=== PATIENT | male | born 1940 | race Caucasian/White ===

== ENCOUNTER 2017-03-14 14:00 | Inpatient (IN) | payer MEDICARE, OTHER ==
[~2017-03-14] VITALS: Ht 188 cm; Wt 88.0 kg
--- NOTE | 2017-03-14 16:00 | NUR ---
REPORT FROM KRISSY MCCORMACK. PATIENT DIRECT ADMIT FROM DR. HORTON'S OFFICE. 20G IV TO LEFT FA, LABS DRAWN AND ANTIBIOTIC AND IV FLUIDS INFUSING. PATIENT'S WIPEDOWN NOW DONE BY BRENDA MORRIS. PATIENT REPORTS HAVING LEUKEMIA, NOTED WBC 18.2. PATIENT STATES "I WANT TO HAVE MY APPENDIX REMOVED, I HAVE BEEN DEALING WITH THE PAIN FOR TOO LONG". RATES PAIN 3/10 ON PAIN SCALE, AND DENIES NEED FOR PAIN MEDICAITON AT THIS TIME. LUNG SOUNDS CLEAR, EKG DONE AND IN CHART. CONSENT SIGNED AND ON CHART.
--- NOTE | 2017-03-14 16:17 | NUR ---
PT HAS HAD SURGICAL WIPE DOWN AND A NEW GOWN PUT ON. PT REMOVED ALL JEWLERY, UNDER GARMENTS, AND ANY OTHER REMOVABLE ITEMS. PT IS NOW RESTING IN BED WAITING TO BE TAKEN TO SURGERY
--- NOTE | 2017-03-14 17:45 | NUR ---
PT IS CURRENTLY IN SURGERY
--- NOTE | 2017-03-14 17:56 | NUR ---
PATIENT HANDOFF TO OR NURSE, PATIENT FAMILY LEFT TO SURGERY AREA FOR PATIENT. NO COMPLAINTS OF PAIN, SENT PATIENT WITH IV LEVAQUIN STILL INFUSING, INFUSION ALMOST COMPLETE.
--- NOTE | 2017-03-14 18:26 | NUR ---
MAKENZIE CHASE CALLED TO FLOOR TO LET STAFF KNOW PATIENT DOING WELL AND OUT OF SURGERY.
--- NOTE | 2017-03-14 18:36 | NUR ---
03/14/17 183 Mayelin Ramirez report from bakery and deli sales manager.
--- NOTE | 2017-03-14 19:20 | NUR ---
PATIENT TO FLOOR, TRANSFERED OVER TO BED FROM [facility] WITH EASE. PATIENT REQUESTED SALGADO TO BE REMOVED, DR. GOODWIN VERBALIZED OKAY. CONTINUES TO HAVE NO COMPLAINTS OF PAIN. ON FLUID RESTRICTION, 500 ML Q 8HRS. PROVIDED PATIENT WITH 300 ML OF WATER. REPORT TO AMERICA MCCORMACK. ARTURO GETTING VS NOW.
--- NOTE | 2017-03-14 19:23 | EKG ---
[facility] [address] [facility] [place], [place] [address] Signed Normal sinus rhythm Normal ECG No previous ECGs available Confirmed by SUSIE ADORNO MD ([id number]) on 03/14/2017 7:23:39 PM Electronically Signed By: SUSIE ADORNO MD 03/14/171922 PATIENT NAME: ROSEANNE JOHN Electrocardiogram DATE OF : 36 PHYSICIAN: SUSIE ADORNO MD REPORT #: [id number] REPORT IS CONFIDENTIAL AND NOT TO BE RELEASED WITHOUT AUTHORIZATION
--- NOTE | 2017-03-14 20:00 | NUR ---
RECEIVED REPORT AT 1900. FOUND PT IN BED. HE JUST ARRIVED FROM PACU. PT DENIED PAIN AND ANY OTHER COMPLAINTS AT THAT TIME.
--- NOTE | 2017-03-14 22:00 | NUR ---
V/S ARE WDL. BOWEL TONES IN ALL QUADRANTS ARE NOT PRESENT AT THIS TIME. I WILL CHECK AGAIN SOON. ALL LOBES ARE CLEAR, ALL 3 LAP SITES ARE C/D/I, ABD IS NON-DISTENDET ACCORDING TO PT BUT FIRM TO TOUCH. PT IS DUE TO VOID BY 2300. PAIN IS NOT AN ISSUE SO FAR.
--- NOTE | 2017-03-14 22:23 | NUR ---
ROUNDED ON PATIENT. NO COMMENTS OR CONCERNS AT THIS TIME. ALL QUESTIONS ANSWERED AT THIS TIME. CALL LIGHT IN REACH.
--- NOTE | 2017-03-15 00:48 | NUR ---
PT IS SLEEPING AT THIS TIME.
--- NOTE | 2017-03-15 02:19 | NUR ---
V/S ARE WDL, PT STILL DOES NOT HAVE ACTIVE BOWEL TONES. PT IS ALSO NOT PASSING GAS. LAP SITES X3 ARE C/D/I. PT HAS BEEN STANDING UP SEVERAL TIME TO URINATE. URINE OUTPUT IS SUFFICIENT. ALL LOBES ARE CLEAR. I WILL CONTINUE TO MONITOR FOR BOWEL TONES. PT DENIES PAIN AND N/V.
--- NOTE | 2017-03-15 03:56 | NUR ---
PT STATED THAT HE PASSED A LITTLE BIT OF GAS. BOWEL TONES AT THIS TIME ARE HYPOACTIVE. PT AMBULATED IN HALLWAY. PT STILL DENIED PAIN. PT IS BACK IN BED.
--- NOTE | 2017-03-15 05:31 | NUR ---
V/S ARE WDL, AT START OF SHIFT PT HAD NO BOWEL TONES PRESENT. PT HAS TOLERATED WATER WELL. PT HAS DENIED PAIN ALL SHIFT, LAP SITES X3 ON ABD ARE C/D/I. ABD IS NON-DISTENDED BUT FIRM TO TOUCH. PT AMBULATED IN HALLWAY X1, BOWEL TONES AT THIS TIME ARE HYPOACTIVE, PT STATED THAT HE HAS PASSED A LITTLE GAS. PT IS BELCHING FREQUENTLY BUT DOES NOT FEEL ABD PRESSURE OR N/V. URINE OUTPUT IS EXCELLENT.
--- NOTE | 2017-03-15 07:10 | NUR ---
BEDSIDE HANDOFF REPORT RECEIVED FROM CONCERT MANAGER RN. PT RESTING IN BED. IV FLUIDS INFUSING. SCDS INPLACE. PT DENIES NEEDS AT THIS TIME.
--- NOTE | 2017-03-15 07:50 | NUR ---
PT RESTING IN BED. PT DENIES PAIN, PAIN WITH DEEP BREATHING OR MOVEMENT, STATES TOLERABLE, DISCUSSED PAIN MANAGEMENT, PT DENIES NEED FOR PAIN MEDICATION AT THIS TIME. PT LUNG SOUNDS CLEAR, ON ROOM AIR. PT DENIES NAUSEA, BOWEL TONES ACTIVE, TOLERATING CLEAR LIQUID DIET. PT ASSISTED TO BATHROOM, VOIDED WITHOUT DIFFIUCLTY. PT REQUESTING TO WALK IN WORKMAN, DISCUSSED PLAN OF CARE. IV ABX INFUSING. DOG DAY CARE ATTENDANT TO WALK WITH PT IN WORKMAN.
--- NOTE | 2017-03-15 08:39 | NUR ---
NO PROBLEMS WITH IV LINE.
--- NOTE | 2017-03-15 08:59 | NUR ---
AT 0840 PT AND I WALKED 3 LOOPS AROUND MED/SURG FLOOR. HE TOLERATED THE WALKING WELL.PT STATED HE WAS IN NO PAIN AND DIDNT NEED ANYTHING. PT BACK IN BED WITH NURSE CALL LIGHT IN REACH.
--- NOTE | 2017-03-15 10:52 | NUR ---
AT 1040 PT AND I WALKED AROUND MED/SURG FLOOR 2 TIMES. DURING THE END OF THE WALK THE PT GOT A SHARP PAIN IN HIS RIGHT CALF. WE WALKED BACK TO ROOM WHERE I PUT HIS SCD BACK ON AND WRAPPED A WARM BLANKET AROUND HIS RIGHT CALF. HE STATED THAT HE WAS FINE AND MY CLINICAL INSTUCTOR INFORMED HIM ON NOTIFING US IF HE GOT ANY CHEST PAIN. I GOT HIM HIS LAST 100ML OF LIQUID. PT WANTED TO NAP BECUASE HE WAS TIRED. LOWERED THE CURTAINS AND I MADE SURE THE CALL LIGHT WAS IN REACH. PT WAS CONTENT WHEN I LEFT HIM.
--- NOTE | 2017-03-15 11:01 | NUR ---
AT 0945 PT GOT UP TO URINATE. WHILE IN THE BATHROOM HE WASHED HIMSELF WITH A CLOTHWASH AND BRUSHED HIS TEETH. WHILE PT WAS IN BATHROOM I CHANGED ALL BEDDING. PT STATED HE WAS THRISTY ONCE GOT BACK INTO BED. I OFFERED HIM MOUTH SWABS AND CHAPSTICK. PT TOOK CHAPSTICK. PT HAD NO COMPLAINTS AT THIS TIME. NURSE CALL LIGHT WAS IN REACH.
--- NOTE | 2017-03-15 11:16 | NUR ---
PT RESTING IN BED. PT DENIES NEEDS AT THIS TIME. PT DECLINING PAIN MEDICATION, STATES PAIN TOLERABLE. PT PROVIDED WITH 100 ML BROTH, 100 ML OF JUICE AND 100 ML JELLO.
--- NOTE | 2017-03-15 12:21 | OR ---
[facility] [address] [place], [place] [address] Signed DATE OF OPERATION: 03/14/2017 SURGEON: Johnathon Horton MD PREOPERATIVE DIAGNOSIS: Acute appendicitis. POSTOPERATIVE DIAGNOSIS: Acute suppurative appendicitis. PROCEDURE: Laparoscopic appendectomy. ESTIMATED BLOOD LOSS: Minimal. INDICATIONS: Crystal is a 76-year-old gentleman, who has 4-year history of stable chronic lymphocytic leukemia. He has been following along with his oncologist, Dr. Thomas Keene. His baseline white blood cell count runs between 17,000 and 19,000. For the last 2 days, he developed moderately painful persistent right lower quadrant abdominal pain. He went to his emergency room in [facility]. His white count was a little above his baseline of 21,000. He was tender in the right lower quadrant. No fever. CT scan of the abdomen and pelvis showed the appendix, but it did not appear thickened nor whether any inflammatory changes. Consequently, he was allowed to go home. He came back the next day and he was abrading machine tender in the right lower quadrant. His provider had called me and I asked that he put him on Cipro and Flagyl and had him come to my office the next day. In the office, I met with Crystal and his . He continued to have persistent right lower quadrant abdominal pain. He had not eaten all day anticipating surgery. I took the time to call Dr. Keene and we reviewed his records including the recent CT scan. We saw no evidence of any lymphadenopathy around the aorta or the iliac chains. I had reviewed this with Crystal and his in detail. I gave them pamphlet on appendicitis. We discussed laparoscopic versus open appendectomy. We discussed the location and function of the appendix. Fortunately, the appendix has no function in the human body whatsoever. We decided to go ahead and admit him directly to hospital from my office with plan to take his appendix out later at evening. In the meantime, he has been given IV fluids and his antibiotics and subcutaneous heparin. I explained to Crystal and his the nature of the surgery along with its risks including but not limited to bleeding, infection, scarring, change in contour of the skin, damage to bowel, appendiceal stump leak, postoperative intraabdominal abscess, incisional hernias and Electronically Signed By: JOHNATHON HORTON MD 03/15/17 1221 PATIENT NAME: CRYSTAL JOHN OPERATIVE REPORT DATE OF : 36 PHYSICIAN: JOHNATHON HORTON MD REPORT #: [id number] REPORT IS CONFIDENTIAL AND NOT TO BE RELEASED WITHOUT AUTHORIZATION [facility] [address] [place], [place] [address] Signed other unforeseen comorbidities. They had expressed understanding and wished to proceed. PROCEDURE NOTE: I met with Crystal and his , daughter, and son-in-law in our preop area. We then went into operating room and placed Crystal in the supine position under general endotracheal tube anesthesia. He was already on preoperative antibiotics along with subcutaneous heparin. SCDs were utilized. A Motta catheter was then inserted with return of clear yellow urine. He was then prepped and draped in usual sterile fashion. All trocars were placed in their usual positions under visualization of the camera without difficulty. We could see that his bowel was thin, flaccid and fluid filled and it took just a minute to gently sweep the small bowel away from the cecum, the cecum was able to be elevated just a little bit and we easily found the base of the appendix where it joins the anterior taenia coli. Base was a little injected, but as we got out to the middle and distal half of the appendix, it was clearly inflamed, thickened, and was some separation. We then divided the base of the appendix from the cecum with help of cautery and our linear stapler. Hemostasis was excellent on the staple line. We then used 2 vascular loads on the mesoappendix and we divided that with good hemostasis. The appendix was then placed into an EndoCatch bag. We irrigated out the right lower quadrant and suctioned it out until clear. The appendix was then removed and we closed the fascia of the right subcostal trocar site with our laparoscopic suturing device using 0 Vicryl suture. After this, we closed the fascia of the supraumbilical trocar site with interrupted [id number] and simple 0 Vicryl sutures. Local anesthetic was then copiously injected into all 3 trocar sites. Each trocar site was irrigated and suctioned out until clear. The skin and dermis of each trocar site was closed with interrupted 3-0 subcuticular Monocryl sutures. Dry gauze and tape was applied to all 3 incisions. Crystal's Motta catheter was left in place. He was awakened from his anesthesia, extubated in the OR, and taken to recovery room in stable condition. Johnathon Horton MD ALB/MODL /[id number] Electronically Signed By: JOHNATHON HORTON MD 03/15/17 1221 PATIENT NAME: CRYSTAL JOHN OPERATIVE REPORT DATE OF : 36 PHYSICIAN: JOHNATHON HORTON MD REPORT #: [id number] REPORT IS CONFIDENTIAL AND NOT TO BE RELEASED WITHOUT AUTHORIZATION [address] [address] Signed cc: MD Johnathon Delgado MD Eric Gamboa, MD Electronically Signed By: JOHNATHON HORTON MD 03/15/17 1221 PATIENT NAME: CRYSTAL JOHN OPERATIVE REPORT DATE OF : 36 PHYSICIAN: JOHNATHON HORTON MD REPORT #: [id number] REPORT IS CONFIDENTIAL AND NOT TO BE RELEASED WITHOUT AUTHORIZATION
--- NOTE | 2017-03-15 12:30 | NUR ---
PT RESTING IN BED. PT DENIES NEED FOR PAIN MEDICATION. PT LUNG SOUNDS CLEAR, ON ROOM AIR. PT BOWEL TONES ACTIVE, TOLERATING CLEAR LIQUID, ADVANCED TO FULL LIQUID. PT WITH COMPLAINT OF RIGHT CALF PAIN, PAIN WORSE WITH PLANTAR FLEXION/WALKING, MD NOTIFIED, VERBAL ORDER FOR ULTRASOUND FOR DVT.
--- NOTE | 2017-03-15 12:36 | NUR ---
AT 1025 PT WENT TO BATHROOM AND STILL COMPLAINED OF PAIN IN RIGHT CALF WHEN HE GETS UP TO WALK. I GOT RN TO COME IN AND TAKE A LOOK AT HIS LEG. ULTRASOUND WAS ORDERED. PT WAS COMFORTABLE IN BED WHEN LEFT. CALL LIGHT IN REACH.
--- NOTE | 2017-03-15 14:15 | NUR ---
PT RESTING IN BED. PT DENIES NEEDS AT THIS TIME. PT REPORT OF FLATUS.
--- NOTE | 2017-03-15 16:40 | NUR ---
PT TOLERATING FULL LIQUID DIET, ADVANCED TO REGULAR DIET, ASSSISTED WITH ORDERING DINNER. PT DENIES NEED FOR PAIN MEDICATION, CONTINUES TO HAVE RIGHT CALF PAIN WITH AMBULATION. PT LUNG SOUNDS CLEAR. BOWEL TONES ACTIVE. IV FLAGYL INFUSING. PT DENIES OTHER NEEDS AT THIS TIME.
--- NOTE | 2017-03-15 17:28 | NUR ---
PT WAKLING IN WORKAMN WITH NURSE AIDE. IV FLUIDS DECREASED TO 75 ML/HR, FLAGYL INFUSION COMPLETED. PT DENIES OTHER NEEDS AT THIS TIME.
--- NOTE | 2017-03-15 17:52 | NUR ---
PT ON ROOM AIR, O2 SATS 97%, CONTINUOUS PULSE OX, LUNG SOUNDS CLEAR. PT ADVANCED TO REGULAR DIET, TOLERATING WELL, BOWEL TONES ACTIVE. PT WITH COMPLAIT OF RIGHT CALF PAIN, ULTRASOUND FOR DVT NEGATIVE. PT WALKED IN HALLS, SBA. IV FLUIDS D5LR AT 75 ML/HR. PT HAS NOT REQUIRED PAIN MEDICATION. VOIDING QS.
--- NOTE | 2017-03-15 19:10 | NUR ---
RECEIVED REPORT FROM RN. PATIENT IS RESTING COMFORTABLY IN BED, BREATHING IS EVEN AND UNLABORED. DENIES NEEDS AT THIS TIME. CALL LIGHT WITHIN REACH, FAMILY AT BEDSIDE.
--- NOTE | 2017-03-15 20:44 | NUR ---
PATIENT IS RESTING COMFORTABLY IN BED, BREATHING IS EVEN AND UNLABORED. O2 SAT IS 93% ON RA, PULSE IS 98. REPORTS 2/10 PAIN AT INCISION SITES, BUT DENIES PAIN MEDICATION AT THIS TIME. PATIENT HAS NO NEEDS AT THIS TIME, ASSESSMENT DONE. HAD PATIENT IS, WITH A MAXIMUM OF 1250 ML INHALE VOLUME. CALL LIGHT WITHIN REACH.
--- NOTE | 2017-03-15 21:59 | NUR ---
PATIENT IN BED SLEEPING. DOES NOT NEED ANYTHING AT THIS TIME.
--- NOTE | 2017-03-15 22:12 | NUR ---
PATIENT IS RESTING COMFORTABLY IN BED, BREATHING IS EVEN AND UNLABORED ON RA. DENIES NEEDS AT THIS TIME. CALL LIGHT WITHIN REACH.
--- NOTE | 2017-03-15 23:52 | NUR ---
PATIENT ASLEEP, DOES NOT NEED ANYTHING AT THIS TIME.
--- NOTE | 2017-03-16 00:35 | NUR ---
PATIENT ASSISTED TO BATHROOM WITH SBA/NON-SLIP SOCKS. DENIES PAIN AT THIS TIME. O2 SATURATION IS 95% ON RA. DENIES OTHER NEEDS AT THIS TIME. CALL LIGHT WITHIN REACH.
--- NOTE | 2017-03-16 02:06 | NUR ---
PATIENT ASLEEP. DOES NOT NEED ANYTHING AT THIS TIME.
--- NOTE | 2017-03-16 03:48 | NUR ---
PATIENT IS ASLEEP. DOES NOT NEED ANYTHING AT THIS TIME.
--- NOTE | 2017-03-16 03:59 | NUR ---
PATIENT IS RESTING COMFORTABLY IN BED, BREATHING IS EVEN AND UNLABORED. O2 SATURATION IS 95% ON RA, PULSE IS 76. ASSISTED TO BATHROOM WITH SBA/NON-SLIP SOCKS. PATIENT REPORTS 2/10 PAIN AT LAP SITES, BUT CONTINUES TO REFUSE PAIN MEDICATION. NO OTHER NEEDS AT THIS TIME. CALL LIGHT WITHIN REACH.
--- NOTE | 2017-03-16 05:38 | NUR ---
PATIENT'S NIGHT WAS UNEVENTFUL. HE HAS BEEN RESTING COMFORTABLY IN BED THROUGHOUT SHIFT. VSS, NO COMPLAINTS OF PAIN. HAS IV FLUIDS RUNNING, HE IS A SBA. BOWEL TONES ARE ACTIVE, LAP SITES ARE OPEN TO AIR AND APPEAR WNL. NO ACUTE CHANGES FROM BEGINNING OF SHIFT ASSESSMENT.
--- NOTE | 2017-03-16 07:10 | NUR ---
BEDSIDE HANDOFF REPORT RECEIVED FROM MARINE REPORTER RN. PT RESTING IN BED. IV FLUIDS INFUSING D5LR AT 75 ML/HR. PT DENIES NAUSEA. PT VOICING DESIRE TO DISCHARGE TODAY, DISCUSSED PLAN OF CARE.
--- NOTE | 2017-03-16 08:32 | NUR ---
PT SITTING ON EDGE OF BED, EATING BREAKFAST. PT LUNG SOUNDS CLEAR, ON ROOM AIR. PT TOLERATING REGULAR DIET, DENIES NAUSEA, BOWEL TONES ACTIVE. PT RATING PAIN TOLERABLE, DENIES NEED FOR PAIN MEDICATION. NO EDEMA NOTED, CONTINUES TO HAVE RIGHT CALF PAIN, STATES IT IS BETTER THAN YESTERDAY. IV ABX INFUSING. DICUSSED PLAN OF CARE AND DISCHARGE WITH PT. PT DENIES NEEDS AT THIS TIME.
--- NOTE | 2017-03-17 07:25 | DS ---
[facility] [address] [place], [place] [address] Signed ADMISSION DATE: 03/14/2017 DISCHARGE DATE: 03/16/2017 FINAL DIAGNOSIS: Acute suppurative appendicitis. PROCEDURES: Laparoscopic appendectomy. HISTORY OF PRESENT ILLNESS: Crystal is a 76-year-old gentleman, overall generally pretty healthy and at his ideal body weight except for his chronic lymphocytic leukemia. It has been stable for about 4 years. He had developed right lower quadrant abdominal pain. He went to [facility] in [place], [place]. He was seen and evaluated. His baseline white count runs between 17 and 19,000. His white count was about 21,000. A CT scan of abdomen and pelvis had been performed and the radiologist just was not particularly concerned about the appendix. Crystal was allowed to go home. He came back the next day with persistent pain in the right lower quadrant. His primary care provider called me, and we asked him to start on Cipro and Flagyl, and I saw him the next day in the office and again, he had persistent pain in the right lower quadrant. I had taken the time to call his night court magistrate as well. There was no lymphadenopathy around the aorta or the iliac chains. After a long discussion with Crystal and his , we decided we would admit him directly to the hospital for diagnostic laparoscopy and appendectomy. HOSPITAL COURSE: Crystal was admitted as above and started on IV fluids and antibiotics. We took him for an uneventful laparoscopic appendectomy. Sure enough, he had acute suppurative appendicitis. He has done extremely well. We have left him on his Levaquin and Flagyl for the 2 days he has been in the hospital. He is now afebrile. His abdomen is completely benign. He is tolerating diet, having lots of flatus, but no bowel movement. He has also been walking and ambulating in the hallways and doing quite well. He had some pain in the upper part of his right calf and so we did order an ultrasound of that right leg and it did not show any DVT. Otherwise, he has done exceptionally well. At this point, we are going to be discharging him to home. DISCHARGE PLANS AND MEDICATIONS: Crystal has not needed any narcotic pain medication. He said ibuprofen and Tylenol are fine. He can certainly purchase that [id number]. He is welcome to resume his chronic medications. He can take diet as usual. He is welcome to perform his activities of daily living including walking up and down stairs and showering and bathing as usual. He should not do any heavy pushing, pulling, or lifting over 25 pounds. We will have him Electronically Signed By: JOHNATHON LAW MD 03/17/17 0725 PATIENT NAME: CRYSTAL JOHN DISCHARGE SUMMARY DATE OF : 36 PHYSICIAN: JOHNATHON LAW MD REPORT #: [id number] REPORT IS CONFIDENTIAL AND NOT TO BE RELEASED WITHOUT AUTHORIZATION [address] [address] Signed back in the office in about 7 to 10 days for followup. He and his have expressed understanding and agreed the above plan. Johnathon Law MD ALB/MODL /[id number] cc: Patrice Trevino MD Electronically Signed By: JOHNATHON LAW MD 03/17/17 0725 PATIENT NAME: CRYSTAL JOHN DISCHARGE SUMMARY DATE OF : 36 PHYSICIAN: JOHNATHON LAW MD REPORT #: [id number] REPORT IS CONFIDENTIAL AND NOT TO BE RELEASED WITHOUT AUTHORIZATION
== END 2017-03-16 10:26 | disposition home or self-care (01) | DRG 343 ==
LOC: MS 14:00
PROVIDERS: ADMIT Colon & Rectal Surgery
PROC: 0DTJ4ZZ Resection of Appendix, Percutaneous Endoscopic Approach (ICD-10-PCS; principal; 2017-03-14 17:30)
DX: K35.80 Unspecified acute appendicitis (principal); H35.30 Unspecified macular degeneration; K21.9 Gastro-esophageal reflux disease without esophagitis; M19.90 Unspecified osteoarthritis, unspecified site; B02.9 Zoster without complications; Z85.6 Personal history of leukemia; Z87.891 Personal history of nicotine dependence
CPT/HCPCS: 00840; 36415; 80048; 83735; 84100; 85025; 88304; 93005; 93010; 93971; 94762; J0330; J1100; J1644; J1885; J1956; J2250; J2405; J2704; J2710; J2765; J3010; J7120

== ENCOUNTER 2020-06-10 09:15 | Day surgery (SDC) | payer MEDICARE, OTHER ==
[~2020-06-10] VITALS: Ht 185.4 cm; Wt 98.2 kg
[~2020-06-10 09:15] MED LIST: ASPIRIN81 MG PO; CALCIUM500 M1 PO; CITALOPRAM HBR40 MG PO; GLUCOSAMINE &1 EAC1 PO; LIPITOR40 MG PO; MOTRIN IB200 M1 PO; MULTIPLE VITAM1 EAC1 PO; OMEPRAZOLE20 M2 PO; PRESERVISION A1 EAC3 PO; RANEXA1000 MG PO; RANITIDINE PO
--- NOTE | 2020-06-10 12:39 | NUR ---
06/10/20 1239 Lennie Nunn 1233- PT ARRIVES TO PACU NONAROUSABLE TO NOXIOUS STIMULI WITH AN OPA IN PLACE. RESP EVEN AND UNLABORED. OXYGEN SAT HIGH 90'S ON 10L VIA MASK. 1238- OXYGEN TITRATED DOWN TO 6L VIA MASK.
[2020-06-10] MEDS ORDERED: ACETAMINOPHEN500 MG PO (12:49)
[2020-06-10] MEDS ORDERED: IBUPROFEN600 MG PO (12:49)
[2020-06-10] MEDS ORDERED: OXYCODON-ACETA1 EAC2 PO (12:49)
--- NOTE | 2020-06-10 13:22 | NUR ---
1305: PATIENT BACK IN DAY SURGERY ROOM FROM PACU. DENIES PAIN. DENIES NAUSEA. VS CHECKED. CHIN DRESSING WITH SMALL AMOUNT OF PINK DRAINAGE. IV SITE WNL. SCDs ON. TOLERATING WATER. GIVEN PUDDING TO EAT. CALL LIGHT WITHIN REACH. 1320: DR. ORTEGA IN ROOM TO TALK WITH PATIENT AND .
--- NOTE | 2020-06-10 14:46 | NUR ---
1345: PATIENT TOLERATED PUDDING AND WATER. DISCHARGE INSTRUCTIONS GIVEN TO PATIENT AND . VS CHECKED. 1403: PATIENT ASSISTED OOB AND TO GET DRESSED. STAND BY ASSIST TO BATHROOM. VOID WITHOUT DIFFICULTY. GAIT STEADY TO AND FROM BATHROOM. IV DC'D WNL. TIP INTACT. DRESSING APPLIED. PATIENT DISCHARGED TO HOME WITH VIA WHEELCHAIR.
--- NOTE | 2020-06-15 15:56 | PATH ---
[facility] [address] [place], [place] [address] Signed SPECIMEN(S): A SUBMENTAL LYMPH NODE SPECIMEN(S): B SUBMENTAL LYMPH NODE SPECIMEN(S): C B T CELL FLOW ONLY, SUBMENTAL LN #1 SPECIMEN SOURCE: A. SUBMENTAL LYMPH NODE B. SUBMENTAL LYMPH NODE C. B T CELL FLOW ONLY, SUBMENTAL LN #1 CLINICAL HISTORY: Excision and biopsy. Adenopathy of neck, chronic lymphocytic leukemia. FINAL PATHOLOGIC DIAGNOSIS: A. 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 B. Lymph node, submental, excisional biopsy: - Chronic lymphocytic leukemia/small lymphocytic lymphoma (CLL/SLL). COMMENT: The provided clinical history of chronic lymphocytic leukemia is noted. Sections demonstrate lymph nodes with diffuse architectural effacement by a small, mature-appearing lymphocytes with clumped chromatin. Scattered proliferation centers are seen. A panel of immunohistochemical stains (with appropriately staining controls) were performed on the submental lymph node designated node #1 (in specimen A) and highlight the following: CD3: Scattered T-cells CD20: Neoplastic lymphocytes. PAX5: Neoplastic lymphocytes. CD5: Neoplastic lymphocytes. CD10: Negative in neoplastic lymphocytes. CD23: Neoplastic lymphocytes BCL2: Neoplastic lymphocytes BCL6: Negative for any staining. CD43: Neoplastic lymphocytes. CyclinD1: Negative in neoplastic lymphocytes. CD21: Rare small follicular dendritic cell meshworks. CD138: Rare scattered capsular and subcapsular plasma cells. Ki-67: 10-15% of cells, nodular pattern The combined morphologic and immunophenotypic profile is compatible with PATIENT NAME: ROSEANNE JOHN PATHOLOGY DATE OF : 36 REPORT #: [id number] PHYSICIAN: GATO GREEN PCP: MARY AGARWAL PA-C REPORT IS CONFIDENTIAL AND NOT TO BE RELEASED WITHOUT AUTHORIZATION [facility] [address] [place], [place] [address] Signed chronic lymphocytic leukemia/small lymphocytic lymphoma (CLL/SLL). Flow cytometry of one of the submental lymph nodes (specimen A, see report [id number]) supports the above diagnosis. This case is reviewed by Jordan Yo MD. A board certified hematopathologist. NAL: NA:cml:C1NR A clonal B-cell population is identified occupying approximately 75% of all analyzed cells. These clonal B-cells express lambda light chain restriction and are positive for CD19, CD20 (dim), CD5, and CD23 and are negative for CD10 and FMC-7. This pattern of marking is most consistent with CLL/SLL, but other entities such as mantle cell lymphoma need to be excluded, and correlation with histologic findings are required. FLOW CYTOMETRY ANALYSIS: FLOW DIFFERENTIAL (% Total CD45 vs. SSC gating): Lymphoid 98%; Debris 0.2%. Cell Count: 9.0 x 10*3/uL. Total Viability: 99% POPULATION ANALYSIS: LYMPHOID CELLS: The lymphocyte gate comprises 98% of total events and includes 23% T-cells with a CD4:CD8 ratio of 5.0:1 and normal emerson T-cell antigen expression. 76% of lymphocytes (75% of total events) are lambda-restricted B-cells expressing CD45 MOD, CD19 DIM, CD20 DIM, CD5 MOD, CD23 MOD, and LAMBDA MOD while negative for CD10, CD38, and FMC7. The remainders are NK-cells. PLASMA CELLS: A significant plasma cell population is not detected in the neg-dimCD45/CD38 screening gate. ANTIBODIES USED: KAPPA, LAMBDA, CD20, CD10, CD19, CD23, CD38, FMC7, CD16, CD56, CD8, CD5, CD2, CD4, CD7, CD3, CD45, 7AAD: TOTAL ANTIBODIES USED: 18. TCS FLOW CYTOMETRY: Submental lymph node, flow cytometry: - CD5-positive, ER39-dypbnyge, lambda restricted B-cell lymphoproliferative disorder. - See Comment. MICROSCOPIC EXAMINATION: Histologic sections of all submitted blocks are examined by light microscopy. These findings, together with the gross examination, support the pathologic diagnosis. GROSS DESCRIPTION: PATIENT NAME: ROSEANNE JOHN PATHOLOGY DATE OF : 36 REPORT #: [id number] PHYSICIAN: GATO GREEN PCP: MARY AGARWAL PA-C REPORT IS CONFIDENTIAL AND NOT TO BE RELEASED WITHOUT AUTHORIZATION [facility] [address] [place] [id number] Signed Two specimens are received in two containers, labeled "LP." A. The specimen, labeled "LP, submental lymph node," is received fresh and consists of two lymph nodes connected by fibroadipose tissue. Lymph node #1 measures 1.9 x 1.2 x 0.8 cm and lymph node #2 measures 1.5 x 1.4 x 0.7 cm. Lymph node #1 inked green. Both nodes were serially sectioned to show fleshy, pink-red tissue. Touch prep slides were made with lymph node #1 and a portion of each node was submitted in separate RPMI containers. The containers are sent and ran for lymphoma triage for lymph node #1 and hold for lymph node #[address] Travis. Cassette Summary: (A1) Lymph node #1, entirely submitted (A2) Lymph node #2, entirely submitted B. The specimen, labeled "LP, submental lymph node," is received in formalin and consists of one yellow-salas soft tissue fragment that measures 0.4 x 0.6 x 0.2 cm. Specimen is bisected and entirely submitted in single cassette (B1). JS (under the direct supervision of a pathologist) The Gross Description was prepared using a voice recognition system. The report was reviewed for accuracy; however, sound-alike word errors, addition and/or deletions may occur. If there is any question about this report, please contact Client Services. ADDITIONAL NOTES: This test was developed and its performance characteristics determined by [facility]. It has not been cleared or approved by the US Food and Drug Administration. The FDA does not require this test to go through premarket FDA review. This test is used for clinical purposes. It should not be regarded as investigational or for research. This laboratory is certified under the Clinical Laboratory Improvement Amendments (CLIA) as qualified to perform high complexity clinical laboratory testing. Immunohistochemical and/or in situ hybridization studies were performed on this case with the appropriate positive controls that react as expected. This test was developed and its performance characteristics determined by [facility]. It has not been cleared or approved by the U.S. Food and Drug Administration. The FDA has determined that such clearance or approval is not necessary. This test is used for clinical purposes. It should not be regarded as investigational or for research. [facility] is certified under the Clinical Laboratory Improvement PATIENT NAME: ROSEANNE JOHN PATHOLOGY DATE OF : 36 REPORT #: [id number] PHYSICIAN: GATO GREEN PCP: MARY AGARWAL PA-C REPORT IS CONFIDENTIAL AND NOT TO BE RELEASED WITHOUT AUTHORIZATION [facility] [address] [place] [address] Signed Amendments of 1988 (CLIA) as qualified to perform high complexity clinical laboratory testing. In this case, certain antibodies were performed by both immunohistochemistry and flow cytometry analysis because flow cytometry analysis did not fully explain all the light microscopic findings. Immunohistochemistry aided in the analysis. Both methods are deemed medically necessary in this case. PERFORMING LABORATORY: The technical component of the flow cytometry was performed by [facility], [address] [place] [address] (Autocad Technician: Mark Carbajal D.O.; CLIA#: [id number]). Professional interpretation of the flow cytometry was performed by [facility], [facility], [address] [place] [address]. IMAGES: A: [id number] A: [id number] FINAL DIAGNOSIS PERFORMED BY: Goyo Singleton MD, Jun 13 2020 4:24PM The technical component was performed by [facility], [address] [place] [address] (Autocad Technician: Kati Renee MD; CLIA# [id number]). [facility], [address] [address] (CLIA# [id number]). Diagnostician: Luba Travis MD Pathologist Electronically Signed 06/15/2020 Copies: ~ PATIENT NAME: ROSEANNE JOHN PATHOLOGY DATE OF : 36 REPORT #: [id number] PHYSICIAN: GATO GREEN PCP: MARY AGARWAL PA-C REPORT IS CONFIDENTIAL AND NOT TO BE RELEASED WITHOUT AUTHORIZATION
--- NOTE | 2020-06-16 17:33 | OR ---
[facility] [address] [place], [place] [address] Signed DATE OF OPERATION: 06/10/2020 SURGEON: Makenzie Ortega MD PREOPERATIVE DIAGNOSES: 1. Cervical adenopathy and parapharyngeal adenopathy. 2. History of chronic lymphocytic leukemia. POSTOPERATIVE DIAGNOSES: 1. Cervical adenopathy and parapharyngeal adenopathy. 2. History of chronic lymphocytic leukemia. 3. Enlarged submental lymph nodes. PROCEDURE: Excision of submental subfascial lymph nodes x3. ANESTHESIA: General endotracheal; Yuniel Tanya, [employer] and local 10 mL of 0.25% Marcaine with epinephrine. INDICATION: This 80-year-old white man is a patient of Sarah Agarwal and Dr. Rod Edmondson of [place], [place]. The patient has long-standing chronic lymphocytic leukemia. He has been noticing episodic swelling of his neck. Recent evaluation by Dr. Edmondson included a CT scan of the head and neck, which showed adenopathy including the submental area. This was performed on June 01, 2020. The patient noted some fullness of his parapharyngeal area as well. There was a 14.5 mm left parapharyngeal enhancing lesion projecting into the airway with a necrotic component and a 11.1 mm paracentral submental lymph node with multiple small lymph nodes along the cervical chains bilaterally and some enlarged pretracheal mediastinal lymph nodes in the AP window. He is admitted at this time to undergo excision of submental lymph nodes for diagnosis with special concern as he is progressing to a lymphoma. The risks of bleeding, infection, and other unforeseen complications were reviewed with him and his , they understand and wished to proceed. FINDINGS: In preoperative area, palpation of the submental area showed the adenopathy not to be as prominent as before. There was a node that was over the right supraclavicular area that was completely resolved. He still had a bulky central tracheal area however. Electronically Signed By: MAKENZIE ORTEGA MD 06/16/20 1733 PATIENT NAME: ROSEANNE JOHN OPERATIVE REPORT DATE OF : 36 REPORT #: [id number] PHYSICIAN: MAKENZIE ORTEGA MD PCP: SARAH AGARWAL PA-C REPORT IS CONFIDENTIAL AND NOT TO BE RELEASED WITHOUT AUTHORIZATION [facility] [address] [place], [place] [address] Signed At operation, lymph nodes were quite obviously enlarged and likely pathologic. This did not represent a thyroglossal duct cyst, though its position was typical of that. Excision of two larger nodes and one very small node was undertaken without problem. Two larger were sent fresh on the high probability this may represent lymphoma, the smaller permanent. DESCRIPTION OF PROCEDURE: The patient was brought to the operating room, given a general endotracheal anesthetic. At the time of intubation, evaluation was undertaken showing some projection of lymphoid tissue particularly on the left side. It was not enlarged enough to cause airway obstruction or anything of that sort. Intubation went without problem. His arms were placed at the side and a shoulder roll was placed and slight neck extension undertaken. The area was previously designated with residual palpable adenopathy, was identified and the neck and upper torso prepared with a chlorhexidine solution and draped sterilely. Preoperative antibiotics were given as well. After sterile draping, a small transverse incision was made over the dominant area in the submental space. Dissection carried through the subcutaneous tissue with electrocautery. Fibers of the platysma muscle were identified and . Further dissection into relatively deep subcutaneous tissue of his neck revealed lymph nodes which were meticulously dissected free from surrounding tissue. An additional small lymph node was similarly resected. The two larger nodes were sent for fresh handling and the smaller for permanent pathology. Electrocautery was used for hemostasis. The wound was closed in layers with interrupted 2-0 Vicryl and interrupted 3-0 Vicryl in the deep dermal layer. Steri-Strips were applied as was a gauze dressing. The patient was ultimately extubated and transferred to the recovery room in good condition having suffered no complications. Sponge, needle, and instrument counts were reported as correct x3. MD CASANDRA Shelton/MODL /[id number] cc: MARCIE Akbar Electronically Signed By: MAKENZIE ORTEGA MD 06/16/20 1733 PATIENT NAME: ROSEANNE JOHN OPERATIVE REPORT DATE OF : 36 REPORT #: [id number] PHYSICIAN: MAKENZIE ORTEGA MD PCP: SARAH AGARWAL PA-C REPORT IS CONFIDENTIAL AND NOT TO BE RELEASED WITHOUT AUTHORIZATION [address] [address] Signed Rod Edmondson MD Copies: ROD EDMONDSON MD ~ Electronically Signed By: MAKENZIE ORTEGA MD 06/16/20 1733 PATIENT NAME: ROSEANNE JOHN OPERATIVE REPORT DATE OF : 36 REPORT #: [id number] PHYSICIAN: MAKENZIE ORTEGA MD PCP: SARAH AGARWAL PA-C REPORT IS CONFIDENTIAL AND NOT TO BE RELEASED WITHOUT AUTHORIZATION
== END 2020-06-10 14:03 | disposition home or self-care (01) ==
LOC: DS 09:15
PROVIDERS: ATTEND Surgery
PROC: 07B10ZX Excision of Right Neck Lymphatic, Open Approach, Diagnostic (ICD-10-PCS; principal; 2020-06-10 11:15)
DX: C85.81 Other specified types of non-Hodgkin lymphoma, lymph nodes of head, face, and neck (principal); C91.10 Chronic lymphocytic leukemia of B-cell type not having achieved remission; I20.8 Other forms of angina pectoris; K21.00 Gastro-esophageal reflux disease with esophagitis, without bleeding; Z88.0 Allergy status to penicillin; Z87.891 Personal history of nicotine dependence
CPT/HCPCS: 00300; 88184; 88185; 88305; 88341; 88342; 88360; J1100; J1885; J2001; J2405; J2704; J3010; J7121

== ENCOUNTER 2025-01-18 07:45 | Emergency (ER) | payer MEDICARE, OTHER ==
[~2025-01-18] VITALS: Ht 185.4 cm; Wt 86.0 kg
[~2025-01-18 07:45] MED LIST changes: +ACETAMINOPHEN500 MG PO; +IBUPROFEN600 MG PO; +OXYCODON-ACETA1 EAC2 PO
[2025-01-18] MEDS ORDERED: FUROSEMIDE20 MG PO (08:04)
[2025-01-18] MEDS ORDERED: ISOSORBIDE MONO30 MG PO (08:05)
[2025-01-18 08:12] LABS: MCH 28.1 PG (25.7-32.2); MCHC 27.0 g/dL (32.3-36.5); MCV 104.1 fL (79.0-92.2); RBC 2.70 M/uL (4.63-6.08)
[2025-01-18] MEDS ORDERED: ALBUTEROL/IPRATROPIUM 3 ML NEB INH ONE (08:30)
[2025-01-18 08:38] LABS: BANDS, MANUAL DIFF 1; LYMPHOCYTES, MANUAL DIFF 89; NEUTROPHILS, MANUAL DIFF 10
[2025-01-18 08:41] LABS: ALT (SGPT) 27.0 U/L (14-59); AST (SGOT) 20.0 U/L (15-37); GLOMERULAR FILTRATION RATE,EST 65.0 mL/min (>60); PROTEIN, TOTAL 6.2 g/dL (6.4-8.2); UREA NITROGEN 19.0 mg/dL (7-18)
[2025-01-18 08:43] LABS: BASOPHILS, MANUAL DIFF 0; EOSINOPHILS, MANUAL DIFF 0; MONOCYTES, MANUAL DIFF 0
[2025-01-18 12:56] VITALS: BP 119/61
--- NOTE | 2025-01-19 07:26 | EKG ---
[facility] [address] [facility] [place] [address] depression, consider subendocardial injury Nonspecific T wave abnormality Prolonged QT Abnormal ECG When compared with ECG of 14-MAR-2017 14:36, Current undetermined rhythm precludes rhythm comparison, needs review ST now depressed in Lateral leads T wave inversion now evident in Lateral leads Confirmed by MAE DESOUZA MD ([id number]) on 01/19/2025 7:25:59 AM Electronically Signed By: MAE DESOUZA 01/19/25 0726 PATIENT NAME: ROSEANNE JOHN Electrocardiogram DATE OF : 36 PHYSICIAN: MAE DESOUZA REPORT #: [id number] REPORT IS CONFIDENTIAL AND NOT TO BE RELEASED WITHOUT AUTHORIZATION
== END 2025-01-18 12:57 | disposition home or self-care (01) ==
LOC: ED 07:45
PROVIDERS: Emergency Medicine
DX: C91.10 Chronic lymphocytic leukemia of B-cell type not having achieved remission (principal); Z88.0 Allergy status to penicillin; Z91.013 Allergy to seafood; Z79.899 Other long term (current) drug therapy; Z79.82 Long term (current) use of aspirin
CPT/HCPCS: 32555; 36415; 71260; 80053; 83880; 84484; 85025; 93005; 93010; 94640; 94761; 99285-25; Q9967